=== PATIENT | female | born 1975 | race American Indian/Alaskan Native ===

== ENCOUNTER 2016-06-30 18:43 | Emergency (ER) | payer OTHER ==
[2016-06-30 19:49] VITALS: BP 114/76
[2016-06-30] MEDS ORDERED: TORADOL IM ONE (21:38)
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
== END 2016-06-30 21:53 | disposition home or self-care (01) ==
LOC: ED 18:43
DX: M79.605 Pain in left leg (principal); Z98.51 Tubal ligation status; V49.9XXA Car occupant (driver) (passenger) injured in unspecified traffic accident, initial encounter; Y93.89 Activity, other specified; Y99.8 Other external cause status; Y92.89 Other specified places as the place of occurrence of the external cause
CPT/HCPCS: 96372; 99282; J1885

== ENCOUNTER 2020-06-30 13:36 | Emergency (ER) | payer SELFPAY ==
[2020-06-30 14:14] VITALS: BP 115/70
--- NOTE | 2020-06-30 14:14 | Emergency Department Report ---
Abscess Boil HPI - HPI Stated Complaint: SPIDER BITE Duration: 5 Days Location: Other Severity: Mild History: Yes Pain, Yes Purulent Drainage, Yes Insect Bite, No Fever, No Numbness, No Foreign Body, No Previous History HPI: 44 YO WITH INSECT BITE TO THE BACK. SHE WAS CONCERNED IT WAS A SPIDER BITE. NO SYSTEMIC SYMPTOMS. BITE OCCURRED LAST WEEKEND. AMBULATORY TO ER IN NAD Home Medications: Previous Rx's Medication Instructions Recorded Last Taken Type cephALEXin [Keflex] 500 mg PO Q12HR #14 cap 06/30/20 Unknown Rx Allergies/Adverse Reactions: Allergies Allergy/AdvReac Type Severity Reaction Status Date / Time No Known Allergies Allergy Verified 06/30/20 14:14 ED Review of Systems ROS: Stated complaint: SPIDER BITE Other details as noted in HPI Comment: All other systems reviewed and negative ED Past Medical Hx - Past Medical History Previous Medical History?: No - Surgical History Past Surgical History?: Yes Additional Surgical History: TUBAL LIGATION - Family History Family history: no significant - Social History Smoking Status: Never Smoker Substance Use Type: None - Medications Home Medications: Home Medications Medication Instructions Recorded Confirmed Last Taken Type cephALEXin [Keflex] 500 mg PO Q12HR #14 cap 06/30/20 Unknown Rx ED Abscess Boil Physical Exam - Exam General: Vital signs noted. No distress. Alert and acting appropriately. Size: 3 cm Exam: Yes Surrounding Cellulites/Erythema, Yes Normal Neurologic Exam, Yes Normal Circulation, No Tenderness, No Fluctuance, No Lymphangitis, No Crepitation, No Heart Murmur Exam: SMALL INSECT BITE; ALREADY OPEN AND DRAINING. SURROUNDING REDNESS. BITE IS UNDER BRA STRAP WHICH IS IRRITATING THE AREA MORE. NO DRAINAGE ON EXAM. PT REPORTS DRAINAGE WITH BAD ODOR. Critical care attestation.: If time is entered above; I have spent that time in minutes in the direct care of this critically ill patient, excluding procedure time. ED Medical Decision Making - Medical Decision Making Vital Signs 06/30/20 14:12 Temperature 98.5 F Pulse Rate 66 Respiratory 14 Rate Blood Pressure 115/70 O2 Sat by Pulse 100 Oximetry INSECT BITE WITH SURROUNDING CELLULITIS NO NECROSIS VSS NO FEVER OR CHILLS NO SYSTEMIC SYMPTOMS PT EDUCATED ON CARE OF WOUND. DC HOME WITH DC PLAN OF CARE. PT VERBALIZES UNDERSTANDING - Differential Diagnosis INSECT BITE TO BACK ED Disposition Clinical Impression: Insect bite, Cellulitis Disposition: DC-01 TO HOME OR SELFCARE Is pt being admited?: No Does the pt Need Aspirin: No Condition: Stable Instructions: Cellulitis, Adult Additional Instructions: WARM COMPRESSES MOTRIN OR TYLENOL FOR PAIN MED ORDERED TODAY FOLLOW UP WITH PCP REFERRAL BELOW DO NOT PICK AT BITE EPSOM SALTS MAY HELP WITH HEALING Prescriptions: cephALEXin [Keflex] 500 mg PO Q12HR #14 cap Referrals: IRMA WALLACE MD [Staff Physician] - 3-5 Days Time of Disposition: 14:13
== END 2020-06-30 14:35 | disposition home or self-care (01) ==
LOC: ED 13:36
DX: L03.312 Cellulitis of back [any part except buttock and flank] (principal); Z79.899 Other long term (current) drug therapy; W57.XXXA Bitten or stung by nonvenomous insect and other nonvenomous arthropods, initial encounter; Y93.89 Activity, other specified; Y92.89 Other specified places as the place of occurrence of the external cause; Y99.8 Other external cause status
CPT/HCPCS: 99282